=== PATIENT | male | born 1975 | race Native Hawaiian/Other Pacific Islander ===

== ENCOUNTER 2021-09-03 16:53 | Emergency (ER) | payer OTHER ==
[~2021-09-03] VITALS: Ht 180.3 cm; Wt 141.5 kg
[2021-09-03 17:03] VITALS: BP 146/94; TEMP 98.1
== END 2021-09-03 18:03 | disposition home or self-care (01) ==
LOC: ED 16:53
DX: M54.59 Other low back pain (principal); M53.3 Sacrococcygeal disorders, not elsewhere classified; E11.65 Type 2 diabetes mellitus with hyperglycemia; Z79.899 Other long term (current) drug therapy; E66.8 Other obesity; X50.9XXA Other and unspecified overexertion or strenuous movements or postures, initial encounter; Y92.89 Other specified places as the place of occurrence of the external cause
CPT/HCPCS: 82948; 96372; 99283; J1885

== ENCOUNTER 2021-09-23 16:26 | Outpatient (CLI) | payer OTHER | END 2021-09-23 19:42 | disposition home or self-care (01) | LOC: RAD 16:26 | PROVIDERS: ATTEND Nurse Practitioner Family | DX: E11.9 Type 2 diabetes mellitus without complications (principal); E78.5 Hyperlipidemia, unspecified; M54.9 Dorsalgia, unspecified; R89.9 Unspecified abnormal finding in specimens from other organs, systems and tissues ==

== ENCOUNTER 2021-10-21 12:40 | Outpatient (CLI) | payer OTHER | END 2021-10-21 19:12 | disposition home or self-care (01) | LOC: MRI 12:40 | PROVIDERS: ATTEND Orthopaedic Surgery | DX: M54.50 Low back pain, unspecified (principal) ==

== ENCOUNTER 2022-02-22 15:19 | Emergency (ER) | payer OTHER ==
[~2022-02-22] VITALS: Ht 180.3 cm; Wt 145.2 kg
[2022-02-22 15:20] VITALS: TEMP 98.6
[2022-02-22 16:28] VITALS: BP 138/82
== END 2022-02-22 16:28 | disposition home or self-care (01) ==
LOC: ED 15:19
DX: M24.811 Other specific joint derangements of right shoulder, not elsewhere classified (principal); X50.9XXA Other and unspecified overexertion or strenuous movements or postures, initial encounter; Y92.89 Other specified places as the place of occurrence of the external cause
CPT/HCPCS: 96372; 99283; J1885

== ENCOUNTER 2022-03-16 11:24 | Outpatient (CLI) | payer OTHER | END 2022-03-16 19:08 | disposition home or self-care (01) | LOC: US 11:24 | PROVIDERS: ATTEND Nurse Practitioner Family | DX: M25.512 Pain in left shoulder (principal); M79.606 Pain in leg, unspecified; I83.813 Varicose veins of bilateral lower extremities with pain; R60.0 Localized edema ==